=== PATIENT | male | born 1970 | race Caucasian/White ===

== ENCOUNTER 2023-06-21 09:04 | Inpatient (IN) ==
[2023-06-21 09:26] LABS: POC Calcium, Ionized 1.01 (1.16-1.32); POC Creatinine 0.9 (0.6-1.2); POC Potassium 5.9 (3.3-5.1)
[2023-06-21] MEDS ORDERED: FUROSEMIDE 20 MG/2 ML VIAL IV ONE ×2 (09:47→09:52)
[2023-06-21] MEDS ORDERED: FUROSEMIDE 40 MG/4 ML VIAL IV ONE ×2 (09:50→16:13)
[2023-06-21 10:16] LABS: Basophils # (Auto) 0.06 K/mcL (0.00-0.30); Basophils % (Auto) 0.7 % (0.0-2.0); Eosinophils # (Auto) 0.26 K/mcL (0.00-0.70); Hematocrit 54.6 % (40.1-51.0); Mean Cell Volume 91.9 fL (80.0-100.0); Mean Corpuscular HGB Conc 29.3 g/dL (31.0-36.0); Mean Platelet Volume 11.2 fL (8.8-12.5); Monocytes # (Auto) 0.94 K/mcL (0.10-0.90); Monocytes % (Auto) 10.8 % (1.0-12.0); Neutrophils % (Auto) 61.8 % (38.0-78.0); Platelet Count 258 K/mcL (140-440); RBC 5.94 M/mcL (4.63-6.08); Red Cell Distribution Width 14.9 % (11.5-14.5); WBC 8.7 K/mcL (4.5-11.0)
[2023-06-21 10:38] LABS: POC Calcium, Ionized 1.12 (1.16-1.32); POC Creatinine 0.8 (0.6-1.2); POC Potassium 4.7 (3.3-5.1)
[2023-06-21 10:41] LABS: proBNP 950.5 pg/mL (<125.0)
[2023-06-21] MEDS: HEPARIN SOD,PORK IN 0.45% NACL 25,000 UNIT in PREMIX 1 BAG IV SCH ×2 (12:22→18:58)
[2023-06-21 15:59] LABS: INR 1.1 (0.9-1.1); Prothrombin Time 14.5 sec (11.9-14.5)
[2023-06-21 16:38] LABS: Partial Thromboplastin Time 57.7 sec (20.0-37.0)
[2023-06-21] MEDS ORDERED: DEXTROSE 31 GM ORAL.SUSP PO PRN (17:54)
[2023-06-21] MEDS ORDERED: DEXTROSE 50% 50 ML VIAL IV PRN (17:54)
[2023-06-21] MEDS ORDERED: SODIUM ZIRCONIUM CYCLOSILICATE 10 GM PACKET PO PRN (18:10)
[2023-06-21 18:59] LABS: Thyroid Stimulating Hormone 1.63 uIU/mL (0.27-5.01)
[2023-06-21 19:09] LABS: Hemoglobin A1C 6.6 % Hgb (4.0-6.0)
[2023-06-21 19:23] LABS: Blood Urea Nitrogen 12 mg/dL (6-20); Calcium 8.7 mg/dL (8.6-10.4); Carbon Dioxide 37 mmol/L (22-30); Chloride 95 mmol/L (96-108); Glomerular Filtration Rate 97; Glucose 92 mg/dL (70-105)
[2023-06-21 19:24] LABS: Phosphorous 3.8 mg/dL (2.5-4.5)
[2023-06-21] MEDS: 0.9 % SODIUM CHLORIDE 10 ML SYRINGE IV SCH ×3 (20:00→22:30)
[2023-06-21 20:35] LABS: Prothrombin Time 14.1 sec (11.9-14.5)
[2023-06-21 20:37] LABS: Partial Thromboplastin Time 69.8 sec (20.0-37.0)
[2023-06-21 20:45] LABS: Blood Urea Nitrogen 12 mg/dL (6-20); Calcium 8.7 mg/dL (8.6-10.4); Carbon Dioxide 36 mmol/L (22-30); Chloride 95 mmol/L (96-108); Glomerular Filtration Rate 97; Glucose 102 mg/dL (70-105)
[2023-06-21] MEDS: cefTRIAXone 1 GM VIAL IV SCH (20:56)
[2023-06-21] MEDS: DOXYCYCLINE HYCLATE 100 MG TABLET.ORL PO SCH (20:57)
[2023-06-21] MEDS: INSULIN LISPRO 1 UNIT/0.01 ML UNIT SQ SCH (21:04)
[2023-06-21] MEDS: FUROSEMIDE 20 MG/2 ML VIAL IV SCH (22:30)
[2023-06-22] MEDS ORDERED: HEPARIN SOD,PORK IN 0.45% NACL 500 ML IV ONE ×3 (01:36→17:36)
[2023-06-22] MEDS: HEPARIN SOD,PORK IN 0.45% NACL 25,000 UNIT in PREMIX 1 BAG IV SCH ×3 (01:39→18:04)
[2023-06-22 05:06] LABS: Hemoglobin 15.8 g/dL (13.7-17.5); Mean Cell Volume 93.1 fL (80.0-100.0); Mean Corpuscular HGB Conc 29.3 g/dL (31.0-36.0); Mean Platelet Volume 10.2 fL (8.8-12.5); Platelet Count 219 K/mcL (140-440); Red Cell Distribution Width 14.5 % (11.5-14.5); WBC 9.5 K/mcL (4.5-11.0)
[2023-06-22] MEDS: FUROSEMIDE 20 MG/2 ML VIAL IV SCH ×3 (05:17→17:00)
[2023-06-22] MEDS: 0.9 % SODIUM CHLORIDE 10 ML SYRINGE IV SCH ×3 (05:18→20:48)
[2023-06-22 05:25] LABS: INR 1.1 (0.9-1.1); Prothrombin Time 14.6 sec (11.9-14.5)
[2023-06-22 05:46] LABS: Partial Thromboplastin Time 134.6 sec (20.0-37.0)
[2023-06-22 07:45] LABS: Eosinophils % (Manual) 2 % (0-7); Lymphocytes % 26 % (15-49); Monocytes % (Manual) 8 % (1-12); Platelet Estimate NORMAL (Normal); RBC Morphology NORMAL (Normal); Reactive Lymphocytes 2 % (0-2); Segmented Neutrophils % 61 % (38-78)
[2023-06-22] MEDS: INSULIN LISPRO 1 UNIT/0.01 ML UNIT SQ SCH ×4 (08:45→20:49)
[2023-06-22] MEDS ORDERED: LISINOPRIL 10 MG TABLET PO SCH (09:00)
[2023-06-22] MEDS ORDERED: BENAZEPRIL 10 MG TABLET PO SCH (09:00)
[2023-06-22] MEDS: DOXYCYCLINE HYCLATE 100 MG TABLET.ORL PO SCH (10:15)
[2023-06-22] MEDS: ASPIRIN 81 MG TAB.CHEW CHEWED SCH (10:16)
[2023-06-22] MEDS: cefTRIAXone 1 GM VIAL IV SCH (10:16)
[2023-06-22] MEDS: PANTOPRAZOLE 40 MG TABLET PO SCH (10:16)
[2023-06-22 11:39] LABS: Blood Urea Nitrogen 11 mg/dL (6-20); Calcium 8.6 mg/dL (8.6-10.4); Carbon Dioxide 37 mmol/L (22-30); Chloride 94 mmol/L (96-108); Glomerular Filtration Rate 97; Glucose 98 mg/dL (70-105); Phosphorous 3.8 mg/dL (2.5-4.5)
[2023-06-22] MEDS ORDERED: IPRATROPIUM/ALBUTEROL 3 ML AMPUL.NEB NEB ONE (15:49)
[2023-06-22] MEDS: IPRATROPIUM/ALBUTEROL 3 ML AMPUL.NEB NEB SCH ×2 (16:10→21:00)
[2023-06-22] MEDS ORDERED: FUROSEMIDE 40 MG/4 ML VIAL IV ONE (16:33)
[2023-06-22 18:09] LABS: Amphetamine Screen,Urine None detected; Barbiturate Screen,Urine None detected; Benzodiazepines Screen,Urine None detected; Cannabinoid Screen,Urine None detected; Cocaine Screen,Urine None detected; Opiate Screen,Urine None detected; Oxycodone, Urine Screen None detected; Phencyclidine Screen,Urine None detected
[2023-06-22 18:33] LABS: ALT/SGPT 28 U/L (<40); AST/SGOT 31 U/L (<40); Albumin 3.2 gm/dL (3.2-5.2); Albumin/Globulin Ratio 0.8 (1.0-2.3); Alkaline Phosphatase 51 U/L (39-117); Bilirubin,Direct 0.3 mg/dL (<0.3); Bilirubin,Total 0.8 mg/dL (0.1-1.0); Blood Urea Nitrogen 11 mg/dL (6-20); Carbon Dioxide 40 mmol/L (22-30); Chloride 91 mmol/L (96-108); Globulin 3.8 gm/dL (2.2-3.7); Glomerular Filtration Rate 97; Glucose 86 mg/dL (70-105); Lactate Dehydrogenase 197 U/L (135-225); Phosphorous 3.1 mg/dL (2.5-4.5); Triglycerides 81 mg/dL (<150); Uric Acid 8.9 mg/dL (2.5-8.0)
[2023-06-22] MEDS: FUROSEMIDE 40 MG/4 ML VIAL IV SCH (20:47)
[2023-06-22] MEDS: MONTELUKAST 10 MG TABLET PO SCH (20:47)
[2023-06-23] MEDS ORDERED: HEPARIN SOD,PORK IN 0.45% NACL 500 ML IV ONE ×4 (00:45→21:23)
[2023-06-23] MEDS: HEPARIN SOD,PORK IN 0.45% NACL 25,000 UNIT in PREMIX 1 BAG IV SCH ×7 (00:49→21:44)
[2023-06-23 06:01] LABS: Hematocrit 53.6 % (40.1-51.0); Hemoglobin 15.4 g/dL (13.7-17.5); Mean Cell Volume 93.2 fL (80.0-100.0); Mean Corpuscular HGB Conc 28.7 g/dL (31.0-36.0); Mean Platelet Volume 9.9 fL (8.8-12.5); Platelet Count 187 K/mcL (140-440); RBC 5.75 M/mcL (4.63-6.08); Red Cell Distribution Width 14.6 % (11.5-14.5); WBC 8.2 K/mcL (4.5-11.0)
[2023-06-23] MEDS: 0.9 % SODIUM CHLORIDE 10 ML SYRINGE IV SCH ×4 (06:02→20:45)
[2023-06-23 06:16] LABS: INR 1.1 (0.9-1.1); Prothrombin Time 14.4 sec (11.9-14.5)
[2023-06-23 06:18] LABS: Partial Thromboplastin Time 92.8 sec (20.0-37.0)
[2023-06-23 07:47] LABS: ALT/SGPT 26 U/L (<40); AST/SGOT 28 U/L (<40); Albumin 3.1 gm/dL (3.2-5.2); Albumin/Globulin Ratio 0.9 (1.0-2.3); Alkaline Phosphatase 48 U/L (39-117); Bilirubin,Direct 0.3 mg/dL (<0.3); Bilirubin,Total 0.8 mg/dL (0.1-1.0); Blood Urea Nitrogen 8 mg/dL (6-20); Calcium 8.8 mg/dL (8.6-10.4); Carbon Dioxide 39 mmol/L (22-30); Chloride 94 mmol/L (96-108); Globulin 3.6 gm/dL (2.2-3.7); Glomerular Filtration Rate 102; Glucose 93 mg/dL (70-105); Lactate Dehydrogenase 196 U/L (135-225); Triglycerides 78 mg/dL (<150)
[2023-06-23] MEDS: FUROSEMIDE 40 MG/4 ML VIAL IV SCH ×2 (07:58→16:52)
[2023-06-23] MEDS: PANTOPRAZOLE 40 MG TABLET PO SCH (07:58)
[2023-06-23] MEDS: INSULIN LISPRO 1 UNIT/0.01 ML UNIT SQ SCH ×4 (07:59→20:38)
[2023-06-23 08:11] LABS: Band Neutrophils % 6 % (0-10); Lymphocytes % 17 % (15-49); Monocytes % (Manual) 10 % (1-12); Platelet Estimate NORMAL (Normal); RBC Morphology NORMAL (Normal); Reactive Lymphocytes 5 % (0-2); Segmented Neutrophils % 63 % (38-78)
[2023-06-23] MEDS: IPRATROPIUM/ALBUTEROL 3 ML AMPUL.NEB NEB SCH ×2 (08:18→20:10)
[2023-06-23 08:37] LABS: Hemoglobin A1C 6.6 % Hgb (4.0-6.0)
[2023-06-23] MEDS: DOCUSATE SODIUM 100 MG CAPSULE PO SCH (09:46)
[2023-06-23] MEDS: ASPIRIN 81 MG TAB.CHEW CHEWED SCH (09:46)
[2023-06-23] MEDS: ACETAMINOPHEN 325 MG TABLET PO PRN (18:58)
[2023-06-23] MEDS: MONTELUKAST 10 MG TABLET PO SCH (20:45)
[2023-06-24] MEDS ORDERED: HEPARIN SOD,PORK IN 0.45% NACL 500 ML IV ONE (04:52)
[2023-06-24] MEDS: 0.9 % SODIUM CHLORIDE 10 ML SYRINGE IV SCH ×3 (05:03→20:25)
[2023-06-24] MEDS: HEPARIN SOD,PORK IN 0.45% NACL 25,000 UNIT in PREMIX 1 BAG IV SCH ×2 (05:07→07:28)
[2023-06-24 06:10] LABS: Hematocrit 54.6 % (40.1-51.0); Mean Cell Volume 91.5 fL (80.0-100.0); Mean Corpuscular HGB Conc 29.3 g/dL (31.0-36.0); Mean Platelet Volume 10.4 fL (8.8-12.5); Platelet Count 207 K/mcL (140-440); RBC 5.97 M/mcL (4.63-6.08); Red Cell Distribution Width 14.4 % (11.5-14.5)
[2023-06-24 06:27] LABS: INR 1.1 (0.9-1.1); Prothrombin Time 14.2 sec (11.9-14.5)
[2023-06-24 06:33] LABS: ALT/SGPT 23 U/L (<40); AST/SGOT 25 U/L (<40); Albumin 3.3 gm/dL (3.2-5.2); Albumin/Globulin Ratio 0.9 (1.0-2.3); Alkaline Phosphatase 47 U/L (39-117); Bilirubin,Direct 0.3 mg/dL (<0.3); Blood Urea Nitrogen 9 mg/dL (6-20); Calcium 9.1 mg/dL (8.6-10.4); Carbon Dioxide 35 mmol/L (22-30); Chloride 94 mmol/L (96-108); Globulin 3.7 gm/dL (2.2-3.7); Glomerular Filtration Rate 102; Glucose 95 mg/dL (70-105); Lactate Dehydrogenase 189 U/L (135-225); Phosphorous 2.9 mg/dL (2.5-4.5); Triglycerides 70 mg/dL (<150)
[2023-06-24] MEDS: ACETAMINOPHEN 325 MG TABLET PO PRN ×2 (07:29→16:32)
[2023-06-24] MEDS: FUROSEMIDE 40 MG/4 ML VIAL IV SCH ×2 (07:29→16:32)
[2023-06-24] MEDS: PANTOPRAZOLE 40 MG TABLET PO SCH (07:29)
[2023-06-24] MEDS: INSULIN LISPRO 1 UNIT/0.01 ML UNIT SQ SCH ×4 (07:33→20:34)
[2023-06-24 07:38] LABS: Band Neutrophils % 3 % (0-10); Eosinophils % (Manual) 5 % (0-7); Lymphocytes % 20 % (15-49); Monocytes % (Manual) 13 % (1-12); Platelet Estimate NORMAL (Normal); RBC Morphology NORMAL (Normal); Reactive Lymphocytes 6 % (0-2); Segmented Neutrophils % 53 % (38-78)
[2023-06-24] MEDS: IPRATROPIUM/ALBUTEROL 3 ML AMPUL.NEB NEB SCH ×2 (08:59→23:49)
[2023-06-24] MEDS: ASPIRIN 81 MG TAB.CHEW CHEWED SCH (10:32)
[2023-06-24] MEDS: DOCUSATE SODIUM 100 MG CAPSULE PO SCH (10:32)
[2023-06-24 11:44] LABS: proBNP 139.1 pg/mL (<125.0)
[2023-06-24] MEDS ORDERED: FUROSEMIDE 20 MG/2 ML VIAL IV ONE (17:07)
[2023-06-24] MEDS: MONTELUKAST 10 MG TABLET PO SCH (20:25)
[2023-06-24] MEDS: MELATONIN 3 MG TABLET PO PRN (20:25)
[2023-06-25 07:25] LABS: ALT/SGPT 26 U/L (<40); AST/SGOT 28 U/L (<40); Albumin 3.3 gm/dL (3.2-5.2); Albumin/Globulin Ratio 0.9 (1.0-2.3); Alkaline Phosphatase 44 U/L (39-117); Bilirubin,Direct 0.3 mg/dL (<0.3); Bilirubin,Total 0.8 mg/dL (0.1-1.0); Blood Urea Nitrogen 9 mg/dL (6-20); Calcium 9.1 mg/dL (8.6-10.4); Carbon Dioxide 34 mmol/L (22-30); Chloride 98 mmol/L (96-108); Globulin 3.7 gm/dL (2.2-3.7); Glomerular Filtration Rate 102; Glucose 87 mg/dL (70-105); Lactate Dehydrogenase 204 U/L (135-225); Phosphorous 3.5 mg/dL (2.5-4.5); Triglycerides 61 mg/dL (<150)
[2023-06-25] MEDS: 0.9 % SODIUM CHLORIDE 10 ML SYRINGE IV SCH ×3 (08:38→20:08)
[2023-06-25] MEDS: INSULIN LISPRO 1 UNIT/0.01 ML UNIT SQ SCH ×4 (08:39→20:07)
[2023-06-25] MEDS: PANTOPRAZOLE 40 MG TABLET PO SCH (08:39)
[2023-06-25] MEDS: DOCUSATE SODIUM 100 MG CAPSULE PO SCH (08:39)
[2023-06-25] MEDS: FUROSEMIDE 40 MG/4 ML VIAL IV SCH ×3 (08:39→20:15)
[2023-06-25] MEDS: ASPIRIN 81 MG TAB.CHEW CHEWED SCH (08:39)
[2023-06-25] MEDS: IPRATROPIUM/ALBUTEROL 3 ML AMPUL.NEB NEB SCH ×2 (09:08→22:15)
[2023-06-25] MEDS: MONTELUKAST 10 MG TABLET PO SCH (20:08)
[2023-06-25] MEDS: MELATONIN 3 MG TABLET PO PRN (20:09)
[2023-06-26] MEDS: 0.9 % SODIUM CHLORIDE 10 ML SYRINGE IV SCH ×2 (06:56→14:43)
[2023-06-26 07:18] LABS: ALT/SGPT 29 U/L (<40); AST/SGOT 32 U/L (<40); Albumin 3.3 gm/dL (3.2-5.2); Albumin/Globulin Ratio 0.9 (1.0-2.3); Alkaline Phosphatase 43 U/L (39-117); Bilirubin,Direct 0.3 mg/dL (<0.3); Bilirubin,Total 0.8 mg/dL (0.1-1.0); Blood Urea Nitrogen 11 mg/dL (6-20); Calcium 9.1 mg/dL (8.6-10.4); Carbon Dioxide 35 mmol/L (22-30); Chloride 96 mmol/L (96-108); Globulin 3.7 gm/dL (2.2-3.7); Glomerular Filtration Rate 102; Glucose 109 mg/dL (70-105); Lactate Dehydrogenase 172 U/L (135-225); Phosphorous 3.3 mg/dL (2.5-4.5); Triglycerides 71 mg/dL (<150)
[2023-06-26] MEDS: IPRATROPIUM/ALBUTEROL 3 ML AMPUL.NEB NEB SCH (07:36)
[2023-06-26] MEDS: INSULIN LISPRO 1 UNIT/0.01 ML UNIT SQ SCH ×2 (07:40→12:33)
[2023-06-26] MEDS: PANTOPRAZOLE 40 MG TABLET PO SCH (07:47)
[2023-06-26] MEDS: ASPIRIN 81 MG TAB.CHEW CHEWED SCH (08:44)
[2023-06-26] MEDS: DOCUSATE SODIUM 100 MG CAPSULE PO SCH (08:44)
[2023-06-26] MEDS: FUROSEMIDE 40 MG/4 ML VIAL IV SCH (08:45)
== END 2023-06-26 14:30 | disposition home or self-care (01) | DRG 189 ==
LOC: ED 09:04 → ICU 19:34
PROVIDERS: ADMIT Internal Medicine Critical Care Medicine; ATTEND Internal Medicine